=== PATIENT | female | born 1995 | race Caucasian/White ===

== ENCOUNTER 2016-05-16 03:22 | Emergency (ER) | payer MEDICAID ==
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
== END 2016-05-16 04:00 | disposition home or self-care (01) ==
LOC: ER 03:22
DX: S80.11XA Contusion of right lower leg, initial encounter (principal); F17.210 Nicotine dependence, cigarettes, uncomplicated; V49.40XA Driver injured in collision with unspecified motor vehicles in traffic accident, initial encounter